=== PATIENT | male | born 1955 | race Caucasian/White ===

== ENCOUNTER 2021-08-12 20:18 | Emergency (ER) | payer OTHER ==
[2021-08-12] MEDS ORDERED: Ondansetron PF 4 MG/2 ML Vial ONE (21:42)
[2021-08-12] MEDS ORDERED: Acetaminophen 500 MG TAB ONE (21:44)
[2021-08-12 22:45] LABS: ALT (SGPT) 18 U/L (8-55); AST (SGOT) 21 U/L (5-34); Albumin 3.5 g/dL (3.4-4.8); Alkaline Phosphatase 43 U/L (40-110); Anion Gap 13 mmol/L (10-20); BUN (Urea Nitrogen) 12 mg/dL (8.4-25.7); Bilirubin, Total 0.4 mg/dL (0.2-1.2); Calc. Creatinine Clearance 0 mL/min (70-130); Calcium 8.3 mg/dL (7.8-10.44); Carbon Dioxide 24 mmol/L (23-31); Chloride 105 mmol/L (98-107); Estimated GFR 99; Globulin 2.4 g/dL (2.4-3.5); Potassium 3.9 mmol/L (3.5-5.1); Protein, Total 5.9 g/dL (5.8-8.1); Sodium 138 mmol/L (136-145)
[2021-08-12 22:54] LABS: Glucose 58 mg/dL (80-115)
== END 2021-08-13 01:50 | disposition home or self-care (01) ==
LOC: ERS 20:18
DX: E11.649 Type 2 diabetes mellitus with hypoglycemia without coma (principal); Z79.4 Long term (current) use of insulin
CPT/HCPCS: 36415; 36416; 80053; 96361; 96374; 96375; J2405